=== PATIENT | male | born 1970 ===

== ENCOUNTER 2018-06-29 12:36 | Inpatient (IN) | payer MEDICAID, OTHER ==
[2018-06-29 12:43] VITALS: BMI 24.7
[2018-06-29] MEDS ORDERED: Multivitamin (MVI) 10 ML, Thiamine 100 MG, Folic Acid 1 MG in Sodium Chloride 0.9% 1,00... IV ONE (13:32)
[2018-06-29 13:55] LABS: BASO # 0.1 K/uL (0.0-0.2); EOS # 0.7 K/uL (0.0-0.7); EOS % 11.8 % (0.0-4.0); HEMOGLOBIN 15.6 g/dL (12.0-18.0); LYMPH # 1.2 K/uL (1.0-4.3); LYMPH % 21.4 % (20.0-40.0); MEAN CELL VOLUME 93.1 fL (80.0-94.0); MEAN CORPUSCULAR HEMOGLOBIN 32.9 pg (27.0-31.0); MEAN CORPUSCULAR HGB CONC 35.3 g/dL (33.0-37.0); MEAN PLATELET VOLUME 7.8 fL (7.2-11.7); MONO # 0.4 K/uL (0.0-0.8); MONO % 7.6 % (0.0-10.0); NEUT # 3.3 K/uL (1.8-7.0); NEUT % 58.2 % (50.0-75.0); NRBC % 0.1 % (0.0-2.0); RBC 4.74 Mil/uL (4.40-5.90); RED CELL DISTRIBUTION WIDTH 12.5 % (11.5-14.5); URINE BILIRUBIN NEGATIVE (NEGATIVE); URINE BLOOD NEGATIVE (NEGATIVE); URINE CLARITY Clear (Clear); URINE COLOR Yellow (YELLOW); URINE GLUCOSE (UA) 3+ mg/dL (Normal); URINE LEUKOCYTE ESTERASE NEG Leu/uL (Negative); URINE PROTEIN NEGATIVE (NEGATIVE); URINE UROBILINOGEN NORMAL mg/dL (0.2-1.0); WHITE BLOOD COUNT 5.6 K/uL (4.8-10.8)
[2018-06-29 14:14] LABS: BARBITURATES, UR NEGATIVE (NEGATIVE); BENZODIAZEPINES, UR NEGATIVE (NEGATIVE); OPIATES, UR NEGATIVE (NEGATIVE); PHENCYCLIDINE, UR NEGATIVE (NEGATIVE)
[2018-06-29 14:25] LABS: ALB/GLOB RATIO 1.5 (1.0-2.1); ALBUMIN 4.7 g/dL (3.5-5.0); ALT/SGPT 36 U/L (21-72); AST/SGOT 32 U/L (17-59); BLOOD UREA NITROGEN 8 mg/dL (9-20); CALCIUM 9.4 mg/dl (8.6-10.4); GFR NON-AFRICAN AMERICAN > 60; LIPASE 87 U/L (23-300)
--- NOTE | 2018-06-29 16:00 | C.PDOC ---
History Of Present Illness 47-year-old male, presents to the emergency department for detox from alcohol. Patient states he drinks several cans of beer a day, and his last drink was yesterday, +tremors. he is also complaining of mild headache and epigastric pain. He denies nausea/vomiting. Chief Complaint (Nursing): Substance Abuse History Per: Patient History/Exam Limitations: no limitations Onset/Duration Of Symptoms: Days Current Symptoms Are (Timing): Still Present Past Medical History Reviewed: Historical Data, Nursing Documentation, Vital Signs Vital Signs: Last Vital Signs Temp 98 F 06/29/18 18:11 Pulse 76 06/29/18 18:11 Resp 16 06/29/18 18:11 BP 154/94 H 06/29/18 18:11 Pulse Ox 98 06/29/18 18:11 Family History: States: No Known Family Hx - Social History Hx Alcohol Use: Yes Hx Substance Use: No - Immunization History Hx Tetanus Toxoid Vaccination: No Hx Influenza Vaccination: No Hx Pneumococcal Vaccination: No Review Of Systems Constitutional: Negative for: Fever Respiratory: Negative for: Shortness of Breath Gastrointestinal: Negative for: Nausea, Vomiting Psych: Negative for: Psychosis, Suicidal ideation Physical Exam - Physical Exam Appears: Non-toxic, No Acute Distress Skin: Normal Color, Warm, Dry, No Rash Head: Atraumatic Eye(s): bilateral: Normal Inspection Nose: Normal Oral Mucosa: Moist Tongue: Other (No fasciculations) Lips: Normal Appearing Neck: Normal ROM Chest: Symmetrical Cardiovascular: Rhythm Regular, No Murmur Respiratory: Normal Breath Sounds, No Accessory Muscle Use Gastrointestinal/Abdominal: Soft, No Tenderness Extremity: Normal ROM, No Deformity Neurological/Psych: Other (Mild tremors) ED Course And Treatment - Laboratory Results Result Diagrams: 06/29/18 13:44 06/29/18 13:44 O2 Sat by Pulse Oximetry: 99 Pulse Ox Interpretation: Normal (RA) Disposition - Disposition Disposition: HOSPITALIZED Disposition Time: 14:45 Condition: STABLE - Clinical Impression Clinical Impression: 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 I have reviewed the chart and agree that the record accurately reflects my personal performance of the history, physical exam, medical decision making, and the department course for this patient. I have also personally directed, reviewed, and agree with the discharge instructions and disposition.
--- NOTE | 2018-06-29 19:49 | PCM.BM ---
<Milagros Pacheco - Last Filed: 06/29/18 19:46> Treatment Plan Problems - Problems identified on initial assessmt etoh abuse Date Initiated: 06/29/18 Time Initiated: 19:47 Assessment reference: NA Status: Active depression Date Initiated: 06/29/18 Time Initiated: 19:47 Assessment reference: NA Status: Active Treatment assets and liabiliti Patient Assests: cooperative, educated, motivated, ADL independent, physically healthy, good support system, negotiates basic needs, cognitively intact, good interpersonal skills Patient Liabilities: financial problems, substance abuse - Milieu Protocol Maintain good personal hygiene: daily Encourage regular showers, daily Remind patient to perform daily oral care, daily Assist patient to perform ADL's Conduct patient checks and document Observation sheet: Q15 minutes Maintain personal safety: every shift Educate patient to report safety concerns to staff, every shift Monitor environment for contraband/sharps Medication safety: Monitor for expected outcome, potential side effects: every shift, Assess barriers to learning: every shift, Assess readiness for medication education: every shift <Michael Majano - Last Filed: 07/02/18 11:21> - Diagnosis (1) Major depressive disorder, recurrent, severe with psychotic features Status: Acute Interventions: 07/02/18 11:22 * Assess/adjust medications daily and /or as needed * See patient on an individual basis 7x/week to assess symptoms of depression * Monitor for side effects & effectiveness of medications * (2) Alcohol use disorder, severe, dependence Status: Acute Interventions: 07/02/18 11:22 * Assess 7x/week regarding severity of withdrawal * Educate regarding risks, benefits, side effects and alternatives of medications * Use Motivational Interviewing for abstinence * Use CBT for relapse prevention * Medication management for withdrawal symptoms * Encourage medication assisted treatment * <Allison Parra - Last Filed: 07/02/18 13:25> Family Contact Family involvement: Family/SO is involved Family contact: Patient declines to allow family contact at present - Goals for Treatment Patient goals for treatment: "I want to go back to my denominational program." Discharge/Continuing Care - Education Needs Education Needs: Patient Medication, Patient Coping Skills - Discharge Discharge Criteria: Tolerates medication w/o severe side effects, No longer exhibiting s/s of withdrawal Discharge to:: Home, With Family - Treatment Team Participation Discussed with Family/SO: No Was Patient/Family/SO present at Treatment Team Meeting: Yes
--- NOTE | 2018-06-30 09:49 | PCM.PSYCH ---
Initial Psychiatric Evaluation - Initial Psychiatric Evaluation Type of Admission: Voluntary Legal Status: Capacity Chief Complaint (in patient's own words): "I'm depressed" History of Present Illness and Precipitating Events: The patient is seen, chart reviewed and case discussed. 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 Translation is made by a [place]er-speaking medical staff member. The patient reports depression and anxiety but denies suicidal or homicidal ideation. This is his first depressive episode. He reports also drinking 24 ounce beers 4 or more a day and he denies drugs. He did reports withdrawal symptoms but no history of seizures or DTs. No psychotic symptoms and no yasmine Psych history: He was in detox in [facility]. Patient came here 4 years ago. Medical history: Denies Family psych history: Denies Current Medications: Active Medications Generic Name Dose Route Start Last Admin Trade Name Freq PRN Reason Stop Dose Admin Chlordiazepoxide 25 mg 06/29/18 20:00 06/30/18 01:35 Librium PO 07/04/18 19:59 Not Given Q6H JP Taper Chlordiazepoxide 25 mg 06/29/18 19:50 Librium PO Q4H PRN Alcohol Withdrawal Clonidine HCl 0.1 mg 06/29/18 19:50 Catapres PO Q4H PRN Symptoms of alcohol withdrawl Folic Acid 1 mg 06/30/18 10:00 Folic Acid PO DAILY JP Mirtazapine 15 mg 06/29/18 22:00 06/29/18 21:52 Remeron PO 15 mg HS JP Administration Multivitamins 1 tab 06/30/18 10:00 Hexavitamin PO DAILY JP Thiamine HCl 100 mg 06/30/18 10:00 Vitamin B1 Tab PO DAILY JP Trazodone HCl 50 mg 06/29/18 19:51 06/29/18 21:52 Desyrel PO 50 mg HS PRN Administration Insomnia Past Psychiatric History - Past Psychiatric History Previous Treatment History: None Pertinent Medical Hx (Current Medical&Sleep Prob, Allergies): Allergies Allergy/AdvReac Type Severity Reaction Status Date / Time No Known Allergies Allergy Verified 06/29/18 12:44 No Known Home Med 06/11/18 Review of Systems - Psychiatric Psychiatric: Abnormal Sleep Pattern, Anhedonia, Anxiety, Depression, Difficulty Concentrating, Mood Swings. absent: Hallucinations, Homicidal Ideation, Hopelessness, Suicidal Ideation Mental Status Examination - Personal Presentation Personal Presentation: Looks stated age - Affect Affect: Constricted - Motor Activity Motor Activity: Calm - Reliability in Providing Information Reliability in Providing Information: Good - Speech Speech: Organized - Mood Mood: Depressed, Anxious - Formal Thought Process Formal Thought Process: No Impairment - Cognitive Functions Orientation: Person, Place, Situation, Time Sensorium: Alert Attention/Concentration: Easily distracted Abstract Thinking: [place] Estimate of Intelligence: Average Judgement: Intact, as evidence by: Insight regarding need for hospitalization Memory: Recent intact, as evidence by: Ability to recall events of the day, Remote intact, as evidenced by: Abilit to recall sig. life events - Risk Risk: Withdrawal, Diminished functioning - Strength & Assets Inventory Strength & Assets Inventory: Cooperative - Limitations Limitations: Living alone DSM 5 DX - DSM 5 DSM 5 Diagnosis: major depressive disorder, single, severe alcohol withdrawal Alcohol use disorder, severe - Recommended/Plan of Treatment Treatment Recommendations and Plan of Treatment: Taper with librium Remeron for depression Gabapentin for augmentation if needed As needed medications All risks, benefits and alternatives of the meds discussed, and the pt agreed and understood. Attend groups and activities Supportive therapy and psychoeducation [place] for abstinence CBT for relapse prevention Encourage MAT Refer to rehab or IOP, and self-help groups Smoking cessation with [place] Nicotine patch if needed 34 min Projected ELOS: 5 days - Smoking Cessation Smoking Cessation Initiated: Yes
[2018-06-30] MEDS: Multiple Vitamins Tab PO SCH (10:14)
[2018-07-01] MEDS: Multiple Vitamins Tab PO SCH (10:00)
--- NOTE | 2018-07-01 10:11 | PCM.PYCHPN ---
Psychiatric Progress Note - Psychiatric Progress Note Patient seen today, length of contact: 15 min Patient Chief Complaint: I was feeling depressed and suicidal. Problems Identified/Issues Discussed: Patient seen and evaluated, chart reviewed and discussed with the nurse. Per staff, he remained isolated and withdrawn. Pt reports depressed mood, and reports feelings of hopelessness and helplessness. Patient reports some withdrawal symptoms including anxiety, headaches and sweating. He denies any auditory hallucinations, visual hallucinations, or any paranoia. Patient is compliant with medications and denies any side effects. Symptoms are improving but pt needs more time to stabilize. Support and psychoeducation given. Medication Change: Yes Medical Record Reviewed: Yes Mental Status Examination - Cognitive Function Orientation: Person, Place, Situation, Time Memory: Intact Attention: WNL Concentration: Poor Association: WNL Fund of Knowledge: Poor - Mood Mood: Depressed, Anxious - Affect Affect: Constricted - Speech Speech: Soft - Formal Thought Process Formal Thought Process: No Impairment - Suicidal Ideation Suicidal Ideation: No - Homicidal Ideation Homicidal Ideation: No Goal/Treatment Plan - Goal/Treatment Plan Need for Continued Stay: Severe depression anxiety, Severe functional impairment Progress Toward Problem(s) and Goals/Treatment Plan: Major depressive disorder, single, severe alcohol withdrawal Alcohol use disorder, severe Taper with librium Remeron for depression Gabapentin for augmentation if needed As needed medications All risks, benefits and alternatives of the meds discussed, and the pt agreed and understood. Attend groups and activities Supportive therapy and psychoeducation [place] for abstinence CBT for relapse prevention Encourage MAT Refer to rehab or IOP, and self-help groups Smoking cessation with [place] Nicotine patch if needed - Smoking Cessation Smoking Cessation Initiated: No
[2018-07-02 06:17] VITALS: O2SAT 98
[2018-07-02] MEDS: Multiple Vitamins Tab PO SCH ×2 (09:29→09:32)
--- NOTE | 2018-07-02 11:21 | PCM.PYCHPN ---
Psychiatric Progress Note - Psychiatric Progress Note Patient seen today, length of contact: 15 min Patient Chief Complaint: I was feeling depressed and suicidal. Problems Identified/Issues Discussed: Patient seen and evaluated, chart reviewed and discussed with the nurse. Pt reports depressed mood, and reports feelings of hopelessness and helplessness. he remained isolated and withdrawn, and confined to his room. Patient reports some withdrawal symptoms including anxiety, headaches and sweating. He denies any auditory hallucinations, visual hallucinations, or any paranoia. Patient is compliant with medications and denies any side effects. Symptoms are improving but pt needs more time to stabilize. Support and psychoeducation given. Medication Change: Yes Medical Record Reviewed: Yes Mental Status Examination - Cognitive Function Orientation: Person, Place, Situation, Time Memory: Intact Attention: WNL Concentration: Poor Association: WNL Fund of Knowledge: Poor - Mood Mood: Depressed, Anxious - Affect Affect: Constricted - Speech Speech: Soft - Formal Thought Process Formal Thought Process: No Impairment - Suicidal Ideation Suicidal Ideation: No - Homicidal Ideation Homicidal Ideation: No Goal/Treatment Plan - Goal/Treatment Plan Need for Continued Stay: Severe depression anxiety, Severe functional impairment Progress Toward Problem(s) and Goals/Treatment Plan: Major depressive disorder, single, severe alcohol withdrawal Alcohol use disorder, severe Taper with librium Remeron for depression Gabapentin for augmentation if needed As needed medications All risks, benefits and alternatives of the meds discussed, and the pt agreed and understood. Attend groups and activities Supportive therapy and psychoeducation [place] for abstinence CBT for relapse prevention Encourage MAT Refer to rehab or IOP, and self-help groups Smoking cessation with [place] Nicotine patch if needed
[2018-07-02] MEDS ORDERED: Aluminum Hydroxide/Magnesium Hydroxide Susp (30 mL) PO PRN (11:26)
[2018-07-02] MEDS: Pantoprazole 20 mg EC Tab PO SCH (17:25)
[2018-07-03] MEDS: Multiple Vitamins Tab PO SCH (09:02)
[2018-07-03] MEDS: Pantoprazole 20 mg EC Tab PO SCH ×2 (09:02→17:03)
--- NOTE | 2018-07-04 08:17 | CP.PCM.PN ---
Subjective - Date & Time of Evaluation Date of Evaluation: 07/03/18 Time of Evaluation: 22:00 - Subjective Subjective: This patient is a 47 year old male with a history of EtoH abuse, Depression, and diabetes. Medicine team was asked to see this patient for cloudiness in the right eye. Patient denied any ocular pain or vision changes. On exam, Right eye ptyergium was found. Patient told that he needs to follow up outpatient for management of his uncontrolled diabetes and for a referral to see an Care Companion. Objective - Vital Signs/Intake and Output Vital Signs (last 24 hours): Temp Pulse Resp BP Pulse Ox 97.6 F 102 H 20 119/78 98 07/04/18 07:00 07/04/18 07:00 07/04/18 07:00 07/04/18 07:00 07/03/18 06:57 - Medications Medications: Current Medications Al Hydrox/Mg Hydrox/Simethicone (Maalox 30 Ml) 30 ml PO TID PRN PRN Reason: Indigestion / Heartburn Chlordiazepoxide (Librium) 25 mg PO Q24H JP PRN Reason: Taper Stop: 07/04/18 19:59 Last Admin: 07/03/18 20:54 Dose: 25 mg Chlordiazepoxide (Librium) 25 mg PO Q4H PRN PRN Reason: Alcohol Withdrawal Last Admin: 07/01/18 10:02 Dose: 25 mg Clonidine HCl (Catapres) 0.1 mg PO Q4H PRN PRN Reason: Symptoms of alcohol withdrawl Folic Acid (Folic Acid) 1 mg PO DAILY [facility] Last Admin: 07/03/18 09:02 Dose: 1 mg Gabapentin (Neurontin) 100 mg PO TID [facility] Last Admin: 07/03/18 17:03 Dose: 100 mg Loperamide HCl (Imodium) 4 mg PO Q6 PRN PRN Reason: Diarrhea Mirtazapine (Remeron) 30 mg PO HS [facility] Last Admin: 07/03/18 21:01 Dose: 30 mg Multivitamins (Hexavitamin) 1 tab PO DAILY [facility] Last Admin: 07/03/18 09:02 Dose: 1 tab Pantoprazole Sodium (Protonix Ec Tab) 20 mg PO BID [facility] Last Admin: 07/03/18 17:03 Dose: 20 mg Thiamine HCl (Vitamin B1 Tab) 100 mg PO DAILY [facility] Last Admin: 07/03/18 09:02 Dose: 100 mg Trazodone HCl (Desyrel) 50 mg PO HS PRN PRN Reason: Insomnia Last Admin: 07/03/18 20:54 Dose: 50 mg - Labs Labs: 06/29/18 13:44 06/29/18 13:44 - Constitutional Appears: No Acute Distress - Head Exam Head Exam: ATRAUMATIC, NORMAL INSPECTION, NORMOCEPHALIC - Eye Exam Eye Exam: EOMI, PERRL Additional comments: Right eye pterygium Assessment and Plan - Assessment and Plan (Free Text) Assessment: 1. Pterygium 2. Uncontrolled diabetes. Plan: Patient should follow up at [facility] for management of chronic medical conditions. Patient seen with Attending Clay Schwab, PGY-2
--- NOTE | 2018-07-04 08:58 | PCM.PYCHPN ---
Psychiatric Progress Note - Psychiatric Progress Note Patient seen today, length of contact: 15 min Patient Chief Complaint: I was feeling depressed and suicidal. Problems Identified/Issues Discussed: Patient seen and evaluated, chart reviewed and discussed with the nurse. Pt still reports depressed mood but reports some improvement in the feelings of hopelessness and helplessness. Patient remained isolated, confined and withdrawn. He is on taper and reports withdrawal symptoms including cramps, back pain and sweating He also reports some improvement in sleep. However he remained isolated and withdrawn. He is taking medications and denies any side effects Symptoms are improving but he needs more time for stabilization. Supportive therapy and psychoeducation were given. Medication Change: Yes Medical Record Reviewed: Yes Mental Status Examination - Cognitive Function Orientation: Person, Place, Situation, Time Memory: Intact Attention: WNL Concentration: Poor Association: WNL Fund of Knowledge: Poor - Mood Mood: Depressed, Anxious - Affect Affect: Constricted - Speech Speech: Soft - Formal Thought Process Formal Thought Process: No Impairment - Suicidal Ideation Suicidal Ideation: No - Homicidal Ideation Homicidal Ideation: No Goal/Treatment Plan - Goal/Treatment Plan Need for Continued Stay: Severe depression anxiety, Severe functional impairment Progress Toward Problem(s) and Goals/Treatment Plan: Major depressive disorder, single, severe alcohol withdrawal Alcohol use disorder, severe Taper with librium Remeron for depression Gabapentin for augmentation if needed As needed medications All risks, benefits and alternatives of the meds discussed, and the pt agreed and understood. Attend groups and activities Supportive therapy and psychoeducation [place] for abstinence CBT for relapse prevention Encourage MAT Refer to rehab or IOP, and self-help groups Smoking cessation with [place] Nicotine patch if needed
[2018-07-04] MEDS: Multiple Vitamins Tab PO SCH (10:52)
[2018-07-04] MEDS: Pantoprazole 20 mg EC Tab PO SCH ×2 (10:52→17:13)
[2018-07-04 15:26] VITALS: PULSE 94
[2018-07-05 06:51] VITALS: BP 120/72; RESP 18; TEMP 98.5
[2018-07-05] MEDS: Pantoprazole 20 mg EC Tab PO SCH (09:29)
[2018-07-05] MEDS: Multiple Vitamins Tab PO SCH (09:30)
--- NOTE | 2018-07-05 09:58 | PCM.PYCHPN ---
Psychiatric Progress Note - Psychiatric Progress Note Patient seen today, length of contact: 15 min Patient Chief Complaint: I was feeling depressed and suicidal. Problems Identified/Issues Discussed: Patient seen and evaluated, chart reviewed and discussed with the nurse. Per staff, he remained isolated and withdrawn. Pt reports depressed mood, and reports feelings of hopelessness and helplessness. Patient reports some withdrawal symptoms including anxiety, headaches and sweating. He denies any auditory hallucinations, visual hallucinations, or any paranoia. Patient is compliant with medications and denies any side effects. Symptoms are improving but pt needs more time to stabilize. Support and psychoeducation given. Medication Change: Yes Medical Record Reviewed: Yes Mental Status Examination - Cognitive Function Orientation: Person, Place, Situation, Time Memory: Intact Attention: WNL Concentration: Poor Association: WNL Fund of Knowledge: Poor - Mood Mood: Depressed, Anxious - Affect Affect: Constricted - Speech Speech: Soft - Formal Thought Process Formal Thought Process: No Impairment - Suicidal Ideation Suicidal Ideation: No - Homicidal Ideation Homicidal Ideation: No Goal/Treatment Plan - Goal/Treatment Plan Need for Continued Stay: Severe depression anxiety, Severe functional impairment Progress Toward Problem(s) and Goals/Treatment Plan: Major depressive disorder, single, severe alcohol withdrawal Alcohol use disorder, severe Taper with librium Remeron for depression Gabapentin for augmentation if needed As needed medications All risks, benefits and alternatives of the meds discussed, and the pt agreed and understood. Attend groups and activities Supportive therapy and psychoeducation [place] for abstinence CBT for relapse prevention Encourage MAT Refer to rehab or IOP, and self-help groups Smoking cessation with [place] Nicotine patch if needed
--- NOTE | 2018-07-05 09:59 | PCM.PYCHDC ---
Mental Status Examination - Mental Status Examination Orientation: Person, Place, Situation, Time Memory: Intact Mood: Neutral Affect: Constricted Speech: Soft Attention: WNL Concentration: WNL Association: WNL Fund of Knowledge: WNL Formal Thought Process: No Impairment Description of patient's judgement and insight: GOOD, FAIR Psychotic Thoughts and Behaviors: Denies any AVH Suicidal Ideation: No Current Homicidal Ideation?: No Discharge Summary - Discharge Note Reason for Hospitalization: he patient is seen, chart reviewed and case discussed. 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 Translation is made by a [place]-speaking medical staff member. The patient reports depression and anxiety but denies suicidal or homicidal ideation. This is his first depressive episode. He reports also drinking 24 ounce beers 4 or more a day and he denies drugs. He did reports withdrawal symptoms but no history of seizures or DTs. No psychotic symptoms and no yasmine Psych history: He was in detox in [facility]. Patient came here 4 years ago. Medical history: Denies Consultations:: List each consultation separately and include: 1. Reason for request. 2. Findings. 3. Follow-up Summary of Hospital Course include:: 1. Description of specific treatment plan utilized for patients during their course of treatmen. 2. Summarize the time- course for resolution of acute symptoms and/or regressed behaviors. 3. Describe issues identified and worked on during hospitalization. 4. Describe medication utilized. 5. Describe medical problems identified and treated. 6. Reassessment of suicide risk - Diagnosis (1) Major depressive disorder, recurrent, severe with psychotic features Current Visit: Yes Status: Acute (2) Alcohol use disorder, severe, dependence Current Visit: Yes Status: Acute - Final Diagnosis (DSM 5) Condition upon Discharge: STABLE DSM 5: major depressive disorder, single, severe alcohol withdrawal Alcohol use disorder, severe Disposition: HOME/ ROUTINE Follow-up Treatment Plan: Major depressive disorder, single, severe alcohol withdrawal Alcohol use disorder, severe Taper with librium Remeron for depression Gabapentin for augmentation if needed As needed medications All risks, benefits and alternatives of the meds discussed, and the pt agreed and understood. Attend groups and activities Supportive therapy and psychoeducation [place] for abstinence CBT for relapse prevention Encourage MAT Refer to rehab or IOP, and self-help groups Smoking cessation with [place] Nicotine patch if needed Prescriptions/Medication Reconciliation: Gabapentin [Neurontin] 100 mg PO TID #60 cap Mirtazapine [Remeron] 30 mg PO HS #30 tab traZODone [Desyrel] 50 mg PO HS PRN #30 tab PRN Reason: Insomnia
== END 2018-07-05 10:35 | disposition home or self-care (01) | DRG 885 ==
LOC: C.ER 12:36 → C.5E 17:49
PROVIDERS: ADMIT Psychiatry & Neurology Psychiatry; ATTEND Psychiatry & Neurology Psychiatry
PROC: GZ3ZZZZ Medication Management (ICD-10-PCS; principal; 2018-06-29)
PROC: HZ2ZZZZ Detoxification Services for Substance Abuse Treatment (ICD-10-PCS; 2018-06-29)
PROC: GZHZZZZ Group Psychotherapy (ICD-10-PCS; 2018-06-29)
PROC: GZ56ZZZ Individual Psychotherapy, Supportive (ICD-10-PCS; 2018-06-29)
PROC: HZ59ZZZ Individual Psychotherapy for Substance Abuse Treatment, Supportive (ICD-10-PCS; 2018-06-29)
PROC: HZ46ZZZ Group Counseling for Substance Abuse Treatment, Psychoeducation (ICD-10-PCS; 2018-06-29)
DX: F33.3 Major depressive disorder, recurrent, severe with psychotic symptoms (principal); F10.239 Alcohol dependence with withdrawal, unspecified; F10.24 Alcohol dependence with alcohol-induced mood disorder; E11.65 Type 2 diabetes mellitus with hyperglycemia; F41.9 Anxiety disorder, unspecified; H11.001 Unspecified pterygium of right eye